=== PATIENT | female | born 1990 | race African-American/Black ===

== ENCOUNTER 2016-07-20 10:07 | Emergency (ER) | payer SELFPAY ==
[~2016-07-20] VITALS: Ht 167.6 cm; Wt 74.1 kg
[2016-07-20 10:32] LABS: ADD MIUA? YES; BILIRUBIN NEGATIVE; BLOOD NEGATIVE; COLOR YELLOW ((YELLOW)); GLUCOSE (STRIP) NEGATIVE; KETONES 20; LEUKOCYTES NEGATIVE; NITRITE NEGATIVE; PROTEIN (STRIP) 30; SPECIFIC GRAVITY 1.024 (1.000-1.030)
[2016-07-20 10:44] LABS: BACTERIA RARE /HPF; EPITHELIAL CELLS RARE /HPF; HYALINE CASTS 0-5 /LPF; MUCUS 2+ /LPF; RED BLOOD CELLS 0-5 /HPF (0-5); UCUL ADDED? NO; WHITE BLOOD CELLS 0-5 /HPF (0-5)
[2016-07-20 10:44] LABS: HEMATOCRIT 37.4 % (36.0-46.0); MCH 26.3 PG (29.0-34.0); MCHC 32.1 G/DL (30.0-36.0); MCV 81.8 FL (83-99); MEAN PLAT.VOLUME 10.4 uM^3 (9.5-12.4); PLATELET COUNT 234 K/uL (156-360); RBC DIS.WIDTH-CV 13.9 % (11.8-14.6); RED BLOOD COUNT 4.57 M/uL (3.80-5.20); WHITE BLOOD COUNT 7.6 K/uL (4.1-10.2)
[2016-07-20 10:59] LABS: CHLORIDE 106 mEq/L (99-109); POTASSIUM 3.6 mEq/L (3.7-5.4); SODIUM 136 mEq/L (136-147)
[2016-07-20 11:02] LABS: GLUCOSE 87 mg/dL (70-99)
[2016-07-20 11:03] LABS: ANION GAP 9 MEQ/L (2-14)
[2016-07-20 11:04] LABS: TOTAL BILIRUBIN 0.8 mg/dL (0.0-1.0)
[2016-07-20 11:05] LABS: ALKALINE PHOSPHATASE 48 IU/L (3-129)
[2016-07-20 11:06] LABS: UREA NITROGEN (BUN) 7 mg/dL (9-23)
[2016-07-20 11:07] LABS: GFR ESTIMATE (CALCULATED) > 59 mL/min/
[2016-07-20 11:36] LABS: QUANTITATIVE HCG 51386.4 MIU/ML
[2016-07-20 14:26] VITALS: BP 113/71
[2016-07-21 16:07] LABS: CHLAMYDIA TRACHOMATIS NEGATIVE; NEISSERIA GONORRHOEAE NEGATIVE
== END 2016-07-20 14:27 | disposition home or self-care (01) ==
LOC: EME 10:07
PROVIDERS: Physician Assistant
DX: O34.81 Maternal care for other abnormalities of pelvic organs, first trimester (principal); N83.201 Unspecified ovarian cyst, right side; Z3A.08 8 weeks gestation of pregnancy
CPT/HCPCS: 76801; 80053; 81003; 84702; 85027; 87210; 87491; 87591; 99281; 99284

== ENCOUNTER 2016-07-28 01:46 | Emergency (ER) | payer SELFPAY ==
[~2016-07-28] VITALS: Ht 167.6 cm; Wt 73.6 kg
[2016-07-28 03:14] LABS: GLUCOSE 80 mg/dL (70-99); UREA NITROGEN (BUN) 6 mg/dL (9-23)
[2016-07-28 03:15] LABS: ALKALINE PHOSPHATASE 54 IU/L (3-129); ANION GAP 14 MEQ/L (2-14); CHLORIDE 103 MEQ/L (99-109); GFR ESTIMATE (CALCULATED) > 59 mL/min/; POTASSIUM 3.5 MEQ/L (3.7-5.4); QUANTITATIVE HCG 144421.7 MIU/ML; SODIUM 136 MEQ/L (136-147); TOTAL BILIRUBIN 0.8 MG/DL (0.0-1.0)
[2016-07-28 03:35] LABS: MCH 26.3 PG (29.0-34.0); MCHC 32.4 G/DL (30.0-36.0); MCV 81.2 FL (83-99); MEAN PLAT.VOLUME 10.2 uM^3 (9.5-12.4); PLATELET COUNT 286 K/uL (156-360); RBC DIS.WIDTH-CV 13.8 % (11.8-14.6); RBC DIS.WIDTH-SD 40.4 % (39-53); RED BLOOD COUNT 5.05 M/uL (3.80-5.20); WHITE BLOOD COUNT 9.9 K/uL (4.1-10.2)
[2016-07-28 03:45] LABS: ADD MIUA? YES; BILIRUBIN NEGATIVE; BLOOD NEGATIVE; COLOR YELLOW ((YELLOW)); GLUCOSE (STRIP) NEGATIVE; KETONES 80; LEUKOCYTES NEGATIVE; NITRITE NEGATIVE; PROTEIN (STRIP) NEGATIVE; SPECIFIC GRAVITY 1.018 (1.000-1.030); UROBILINOGEN 0.2 MG/DL (0.2-1.0)
[2016-07-28 03:49] LABS: BACTERIA RARE /HPF; EPITHELIAL CELLS RARE /HPF; MUCUS 2+ /LPF; RED BLOOD CELLS 0-5 /HPF (0-5); UCUL ADDED? NO
[2016-07-28 03:58] LABS: LIPASE 17 U/L (1.0-51.0)
[2016-07-28] MEDS ORDERED: ZOFRAN8 MG PO (04:54)
[2016-07-28 05:07] VITALS: BP 94/58
== END 2016-07-28 05:08 | disposition home or self-care (01) ==
LOC: EME 01:46
DX: O34.81 Maternal care for other abnormalities of pelvic organs, first trimester (principal); N83.201 Unspecified ovarian cyst, right side; R11.2 Nausea with vomiting, unspecified; E86.0 Dehydration; Z3A.01 Less than 8 weeks gestation of pregnancy
CPT/HCPCS: 76801; 80053; 81003; 83690; 84702; 85027; 99281; 99284; J2405; J7030; J7120

== ENCOUNTER 2016-11-30 00:46 | Emergency (ER) | payer OTHER ==
[~2016-11-30] VITALS: Ht 167.6 cm; Wt 70.6 kg
[~2016-11-30 00:46] MED LIST: ZOFRAN8 MG PO
[2016-11-30 01:54] LABS: EOSINOPHIL (%) 3.2 % (0-5); EOSINOPHIL COUNT 0.3 K/uL (0-0.3); HEMATOCRIT 32.7 % (36.0-46.0); IMMATURE GRANULOCYTE (%) 0.7 % (0.0-0.7); IMMATURE GRANULOCYTE COUNT 0.1 K/uL; INSTRUMENT ABS NEUTROPHIL CT 5.8 K/uL; LYMPHOCYTE COUNT 2.6 K/uL (1.0-2.8); MCH 26.9 PG (29.0-34.0); MCHC 32.1 G/DL (30.0-36.0); MCV 83.8 FL (83-99); MEAN PLAT.VOLUME 10.5 uM^3 (9.5-12.4); MONOCYTE COUNT 0.8 K/uL (0-0.8); NEUTROPHIL (%) 60.5 % (45-76); NEUTROPHIL COUNT 5.8 K/uL (1.8-6.4); PLATELET COUNT 213 K/uL (156-360); RBC DIS.WIDTH-CV 14.5 % (11.8-14.6); RBC DIS.WIDTH-SD 43.7 % (39-53); WHITE BLOOD COUNT 9.6 K/uL (4.1-10.2)
[2016-11-30 02:01] LABS: CHLORIDE 106 mEq/L (99-109); POTASSIUM 3.2 mEq/L (3.7-5.4); SODIUM 137 mEq/L (136-147)
[2016-11-30 02:03] LABS: GLUCOSE 77 mg/dL (70-99)
[2016-11-30 02:04] LABS: ANION GAP 12 MEQ/L (2-14)
[2016-11-30 02:06] LABS: GFR ESTIMATE (CALCULATED) > 59 mL/min/
[2016-11-30 02:07] LABS: UREA NITROGEN (BUN) 6 mg/dL (9-23)
[2016-11-30 05:06] VITALS: BP 97/58
[2016-11-30 07:23] VITALS: BP 89/52
[2016-11-30 08:35] VITALS: BP 112/61
== END 2016-11-30 12:00 | disposition home or self-care (01) ==
LOC: EME 00:46 → 2WEST 04:51
PROVIDERS: Emergency Medicine
DX: O9A.312 Physical abuse complicating pregnancy, second trimester (principal); S12.8XXA Fracture of other parts of neck, initial encounter; R10.9 Unspecified abdominal pain; Z3A.26 26 weeks gestation of pregnancy; Y04.8XXA Assault by other bodily force, initial encounter
CPT/HCPCS: 59025; 70450; 70498; 76805; 80048; 85025; 85460; 99281; 99285; G0378; J7030; J7120

== ENCOUNTER 2017-03-14 12:19 | Inpatient (IN) | payer OTHER ==
[~2017-03-14] VITALS: Ht 167.6 cm; Wt 80.7 kg
[2017-03-14] VITALS (16 sets, daily range): BP systolic 94–125; BP diastolic 52–77
[2017-03-14] MEDS ORDERED: PRENATAL TABLE1 EAC3 PO (13:31)
[2017-03-14 13:48] LABS: EOSINOPHIL (%) 1.9 % (0-5); EOSINOPHIL COUNT 0.2 K/uL (0-0.3); HEMATOCRIT 37.9 % (36.0-46.0); IMMATURE GRANULOCYTE (%) 0.4 % (0.0-0.7); INSTRUMENT ABS NEUTROPHIL CT 4.9 K/uL; LYMPHOCYTE COUNT 2.1 K/uL (1.0-2.8); MCH 26.2 PG (29.0-34.0); MCHC 31.7 G/DL (30.0-36.0); MCV 82.8 FL (83-99); MEAN PLAT.VOLUME 10.3 uM^3 (9.5-12.4); MONOCYTE (%) 8.4 % (3-12); MONOCYTE COUNT 0.7 K/uL (0-0.8); NEUTROPHIL (%) 62.6 % (45-76); NEUTROPHIL COUNT 4.9 K/uL (1.8-6.4); PLATELET COUNT 224 K/uL (156-360); RBC DIS.WIDTH-CV 16.5 % (11.8-14.6); RBC DIS.WIDTH-SD 49.7 % (39-53); RED BLOOD COUNT 4.58 M/uL (3.80-5.20); WHITE BLOOD COUNT 7.8 K/uL (4.1-10.2)
[2017-03-15] VITALS (35 sets, daily range): BP systolic 105–140; BP diastolic 56–84
[2017-03-16 07:48] LABS: EOSINOPHIL (%) 1.2 % (0-5); EOSINOPHIL COUNT 0.2 K/uL (0-0.3); HEMATOCRIT 32.1 % (36.0-46.0); IMMATURE GRANULOCYTE (%) 0.4 % (0.0-0.7); IMMATURE GRANULOCYTE COUNT 0.1 K/uL; INSTRUMENT ABS NEUTROPHIL CT 8.9 K/uL; LYMPHOCYTE COUNT 2.8 K/uL (1.0-2.8); MCH 26.9 PG (29.0-34.0); MCHC 32.1 G/DL (30.0-36.0); MCV 83.8 FL (83-99); MEAN PLAT.VOLUME 10.6 uM^3 (9.5-12.4); MONOCYTE (%) 8.4 % (3-12); MONOCYTE COUNT 1.1 K/uL (0-0.8); NEUTROPHIL (%) 68.5 % (45-76); NEUTROPHIL COUNT 8.9 K/uL (1.8-6.4); PLATELET COUNT 180 K/uL (156-360); RBC DIS.WIDTH-CV 16.8 % (11.8-14.6); RBC DIS.WIDTH-SD 51.6 % (39-53); RED BLOOD COUNT 3.83 M/uL (3.80-5.20)
[2017-03-17 07:08] VITALS: BP 101/52
[2017-03-17] MEDS ORDERED: DOCUSATE SODIU100 MG PO (11:29)
[2017-03-17] MEDS ORDERED: IBUPROFEN800 MG PO (11:29)
== END 2017-03-17 12:45 | disposition home or self-care (01) | DRG 775 ==
LOC: LDRP-OP → 2WEST 12:20 → LDRP-OP 04-05 13:48
PROVIDERS: Advanced Practice Midwife
DX: O70.0 First degree perineal laceration during delivery (principal); O71.4 Obstetric high vaginal laceration alone; O48.0 Post-term pregnancy; O41.03X0 Oligohydramnios, third trimester, not applicable or unspecified; Z3A.41 41 weeks gestation of pregnancy; Z37.0 Single live birth; Z91.410 Personal history of adult physical and sexual abuse
CPT/HCPCS: 85025; C1755; G0378; J0595; J3010; J7120

== ENCOUNTER 2017-11-01 04:29 | Emergency (ER) | payer BC ==
[~2017-11-01] VITALS: Ht 167.6 cm; Wt 89.9 kg
[~2017-11-01 04:29] MED LIST changes: +DOCUSATE SODIU100 MG PO; +IBUPROFEN800 MG PO; +PRENATAL TABLE1 EAC3 PO
[2017-11-01 05:02] LABS: HEMOGLOBIN 12.1 G/DL (11.9-15.5); MCH 26.1 PG (29.0-34.0); MCHC 32.7 G/DL (30.0-36.0); MCV 79.7 FL (83-99); PLATELET COUNT 230 K/uL (156-360); RBC DIS.WIDTH-CV 14.6 % (11.8-14.6); RBC DIS.WIDTH-SD 42.4 % (39-53); RED BLOOD COUNT 4.64 M/uL (3.80-5.20); WHITE BLOOD COUNT 7.8 K/uL (4.1-10.2)
[2017-11-01 05:15] LABS: CHLORIDE 109 mEq/L (99-109); POTASSIUM 3.8 mEq/L (3.7-5.4); SODIUM 140 mEq/L (136-147)
[2017-11-01 05:17] LABS: GLUCOSE 97 mg/dL (70-99)
[2017-11-01 05:19] LABS: TOTAL BILIRUBIN 0.2 mg/dL (0.0-1.0)
[2017-11-01 05:21] LABS: ALKALINE PHOSPHATASE 96 IU/L (3-129); CREATININE 0.8 mg/dL (0.6-1.3); GFR ESTIMATE (CALCULATED) > 59 mL/min/
[2017-11-01 05:22] LABS: UREA NITROGEN (BUN) 11 mg/dL (9-23)
[2017-11-01 05:23] LABS: AST (GOT) 17 IU/L (2-34)
[2017-11-01 05:24] LABS: ALT (GPT) 12 IU/L (3-49); LIPASE 29 U/L (1.0-51.0)
[2017-11-01 06:29] LABS: QUANTITATIVE HCG < 4.0 MIU/ML
[2017-11-01] MEDS ORDERED: ZOFRAN4 MG PO (06:33)
[2017-11-01 06:40] VITALS: BP 98/88
== END 2017-11-01 06:40 | disposition home or self-care (01) ==
LOC: EME 04:29
PROVIDERS: Emergency Medicine
DX: K52.9 Noninfective gastroenteritis and colitis, unspecified (principal)
CPT/HCPCS: 74177; 80053; 81003; 83605; 83690; 84702; 85027; J2270; J2405